=== PATIENT | female | born 1995 | race Hispanic/Latino ===

== ENCOUNTER 2018-05-01 17:49 | Observation (INO) | payer OTHER ==
[2018-05-01 17:50] VITALS: BMI 20.7
[2018-05-01] MEDS ORDERED: Lactated Ringer's 1,000 ML IV STA (18:33)
[2018-05-01 18:59] LABS: BASO # 0.1 K/uL (0.0-0.2); BASO % 0.6 % (0.0-2.0); EOS # 0.1 K/uL (0.0-0.7); EOS % 0.3 % (0.0-4.0); HEMOGLOBIN 10.5 g/dL (12.0-16.0); LYMPH # 2.3 K/uL (1.0-4.3); LYMPH % 12.9 % (20.0-40.0); MEAN CELL VOLUME 89.5 fl (81.0-99.0); MEAN CORPUSCULAR HEMOGLOBIN 30.5 pg (27.0-31.0); MEAN CORPUSCULAR HGB CONC 34.1 g/dL (33.0-37.0); MEAN PLATELET VOLUME 8.4 fl (7.2-11.7); MONO # 0.9 K/uL (0.0-0.8); MONO % 5.4 % (0.0-10.0); NEUT # 14.2 K/uL (1.8-7.0); NEUT % 80.8 % (50.0-75.0); RBC 3.43 Mil/uL (3.80-5.20); RED CELL DISTRIBUTION WIDTH 12.6 % (11.5-14.5); WHITE BLOOD COUNT 17.5 K/uL (4.8-10.8)
[2018-05-01 19:08] LABS: ALB/GLOB RATIO 1.3 (1.0-2.1); ALBUMIN 4.1 g/dL (3.5-5.0); ALT/SGPT 30 U/L (9-52); AST/SGOT 24 U/L (14-36); BLOOD UREA NITROGEN 7 mg/dl (7-17); CALCIUM 9.5 mg/dL (8.4-10.2); GFR NON-AFRICAN AMERICAN > 60
--- NOTE | 2018-05-01 19:14 | ED PDOC ---
HPI: Abdomen Time Seen by Provider: 05/01/18 18:21 Chief Complaint (Nursing): Abdominal Pain Chief Complaint (Provider): Abdominal Pain History Per: Patient History/Exam Limitations: no limitations Onset/Duration Of Symptoms: Hrs (x2 MERINGUER) Outside of [place] travel?: No Current Symptoms Are (Timing): Still Present Location Of Pain/Discomfort: RLQ, Suprapubic Quality Of Discomfort: Cramping Additional Complaint(s): 22 year old female with a history of endometriosis, seizure disorder and is 19 weeks presents to the ED with RLQ abdominal pain and pelvic pain that started x2 hours MERINGUER. Patient reports mild suprapubic cramping over the last 24 hours. Pain is radiating from RLQ to RUQ and back. She had x1 episode of vomiting and nausea. Patient denies any diarrhea, constipation, sick contacts, recent travel or recent antibiotics. She has had abdominal surgery, an appendectomy, endometriosis surgery, and ovarian cyst resection. 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 [place] Past Medical History Reviewed: Historical Data, Nursing Documentation, Vital Signs Vital Signs: Last Vital Signs Temp 98.4 F 05/01/18 18:04 Pulse 84 05/01/18 18:04 Resp 16 05/01/18 18:04 BP 114/67 05/01/18 18:04 Pulse Ox 100 05/01/18 18:04 - Medical History PMH: Anxiety, Depression, Seizures Denies: Chronic Kidney Disease Other PMH: endometriosis - Surgical History Surgical History: Appendectomy, Tonsillectomy Other surgeries: abdominal surgery, endometriosis surgery, and ovarian cyst resection - Family History Family History: States: No Known Family Hx - Social History Current smoker - smoking cessation education provided: No Ex-Smoker (has not smoked in the last 12 months): No Alcohol: None - Immunization History Hx Tetanus Toxoid Vaccination: No Hx Influenza Vaccination: No Hx Pneumococcal Vaccination: No - Home Medications Home Medications: Ambulatory Orders Medication Instructions Recorded RX: levETIRAcetam [Keppra] 750 mg PO BID #30 tab 02/28/16 oxyCODONE/Acetaminophen [Percocet 1 ea PO Q6H PRN #30 tab 08/20/16 5/325 mg Tab] Naproxen [Naprosyn] 500 mg PO BID PRN #14 tab 08/21/16 - Allergies Allergies/Adverse Reactions: Allergies Allergy/AdvReac Type Severity Reaction Status Date / Time bupropion HCl Allergy .seizure Verified 05/01/18 18:11 [From Wellbutrin] Review of Systems ROS Statement: Except As Marked, All Systems Reviewed And Found Negative Gastrointestinal: Positive for: Nausea, Vomiting, Abdominal Pain. Negative for: Diarrhea, Constipation Genitourinary Female: Positive for: Pelvic Pain Physical Exam - Reviewed Nursing Documentation Reviewed: Yes Vital Signs Reviewed: Yes - Physical Exam Appears: Positive for: In Acute Distress (mild painful) Head Exam: Positive for: ATRAUMATIC, NORMOCEPHALIC Skin: Positive for: Warm, Dry Eye Exam: Positive for: EOMI, PERRL ENT: Negative for: Pharyngeal Erythema, Tonsillar Exudate Neck: Positive for: Painless ROM, Supple Cardiovascular/Chest: Positive for: Regular Rate, Rhythm. Negative for: Murmur Respiratory: Positive for: Normal Breath Sounds. Negative for: Respiratory Distress Gastrointestinal/Abdominal: Positive for: Soft, Tenderness (RUQ tenderness to palpation ), Other (Gravid less than 20 weeks and Negative Ruth sign ). Negative for: Distended Back: Positive for: Normal Inspection. Negative for: Muscle Spasm Extremity: Positive for: Normal ROM. Negative for: Deformity Lymphatic: Negative for: Adenopathy Neurologic/Psych: Positive for: Alert. Negative for: Motor/Sensory Deficits - Laboratory Results Result Diagrams: 05/01/18 18:50 05/01/18 18:50 Lab Results: Total Bilirubin 0.2 mg/dl (0.2-1.3) 05/01/18 18:50 AST 24 U/L (14-36) 05/01/18 18:50 ALT 30 U/L (9-52) 05/01/18 18:50 Alkaline Phosphatase 48 U/L (38-126) 05/01/18 18:50 Total Protein 7.3 G/DL (6.3-8.2) 05/01/18 18:50 Albumin 4.1 g/dL (3.5-5.0) 05/01/18 18:50 Globulin 3.1 gm/dL (2.2-3.9) 05/01/18 18:50 Albumin/Globulin Ratio 1.3 (1.0-2.1) 05/01/18 18:50 - ECG O2 Sat by Pulse Oximetry: 100 (RA) Pulse Ox Interpretation: Normal Medical Decision Making Medical Decision Making: Time: 1820 Initial Impression: Abdominal pain in second trimester Differential diagnoses include but are not limited to: Adhesion pain, cystitis or UTI, and round ligament pain, ovarian cyst, demise, and endometriosis. Initial Plan: --CMP --U preg --U dip --CBC w/ differentials --Lactated ringers --Zofran 4 mg IVP --US OB Time: 2009 US OB COMMENTS: There is a single intrauterine gestation, cephalic presentation. The BPD measures 4.7 cm corresponds to a gestational age of 20 weeks 0 days. The AC measures 13.2 cm corresponds to a gestational age of 18 weeks 5 days. The HC measures 16.4 cm corresponds to a gestational age of 19 weeks 1 day. The FL measures 3.1 cm corresponds to a gestational age of 19 weeks 5 days. The composite age is 19 weeks 3 days. heart motion was observed. The heart rate is 146 beats per minute. motion is detected. The placenta is posterior fundal and free of the cervical os. No free fluid is seen. Both ovaries are not visualized. The cervical length is 4.7 cm and the cervix is closed. IMPRESSION: 1. Single, live, intrauterine gestation with a composite gestational age of 19 weeks 3 days. 2. Estimated date of delivery is 09/22/2018. History RUQ/RLQ pain. The patient is 19 weeks . Comparison None. Technique Sonographic evaluation of the right upper quadrant of the abdomen. Findings Liver Measures 17.3 cm in length. Normal echogenicity of the liver parenchyma. No mass. No intrahepatic bile duct dilatation. Gallbladder Unremarkable. No gallstones. Wall measures 0.2 cm. Common bile duct Measures 3 mm. No stones. No dilatation. Pancreas Unremarkable as visualized. No mass. No ductal dilatation. Right kidney Measures 11.7 x 3.8 x 3.9 cm in length. Normal echogenicity. No calculus, mass, or hydronephrosis. Aorta No aneurysmal dilatation. IVC Unremarkable. Other Findings Appendix is not visualized. Impression Normal study. Electronically signed on May 01, 2018 9:25:02 PM EST by: Christopher Herrera M.D., [place] Certified By ABR & [facility] Fellowship Trained MRI and CT Specialist Time: 2144 --Patient continued to have tenderness in right lower and upper quadrant. Discussed possibility of ovarian cyst or stump appendicitis, need for continued observation in hospital for undifferentiated abdominal pain and leukocytosis. Discussed with Dr. Daley, surgery corrosion control fitter, and Dr. Jolley, OB corrosion control fitter. José Miguel fernandez to be hospitalized under Dr. Ramos, medical service. DW Dr Ramos who requests blood and urine cultures and ID consult. Orders placed as per discussion. Scribe Attestation: Documented by Adri Coulter, acting as a scribe for Hina Vincent MD. Provider Scribe Attestation: All medical record entries made by the Scribe were at my direction and personally dictated by me. I have reviewed the chart and agree that the record accurately reflects my personal performance of the history, physical exam, medical decision making, and the department course for this patient. I have also personally directed, reviewed, and agree with the discharge instructions and disposition. Disposition - Clinical Impression Clinical Impression: Abdominal pain, Abdominal pain during - Disposition Disposition Time: 21:45 Condition: FAIR - Pt Status Changed To: Hospital Disposition Of: Observation - POA Present On Arrival: None
--- NOTE | 2018-05-01 23:08 | CP.PCM.CON ---
History of Present Illness - History of Present Illness History of Present Illness: General surgery consult note for Dr. Daley Consulted for: RLQ abdominal pain Patient is a 22 y/o 19wk female with PMH including endometriosis, ovarian cysts, appendicitis, and frequent UTI's with PSH of laparoscopic appe ndectomy by Dr. Boateng 08/2016 and endometrectomy, ovarian cyst excision, and fallopian tubal cannulation by Dr. Masters in 08/2017. Patient states she started having RLQ tearing abdominal pain this AM that radiates to her umbilicus. Pain is constant, worsened by movement, not alleviated by tylenol. It was associated with nausea, vomiting of stomach contents, non-bilioius, non bloody. Patient states she has had two bowel movements today of normal caliber, color, and consistency. Patient also complains of pain in the lower back that is now resolved. Patient denies fevers or chills but feels warm at time of the examination, denies any diarrhea, chest pain, SOB, dysuria, hematuria, increased urinary frequency, vaginal bleeding or discharge, or any other symptoms. Patient states she had nausea and vomiting at the beginning of that resolved, has been seeing her OBGYN, Dr. Garcia regularly, last visit one month ago. Denies any history of STD's and states her recent STD tests were negative. Denies any prior episodes of pain like this, or any sick contacts. Patient states she has f elt the fetus moving regularly today. PMH: endometriosis, ovarian cysts, appendicitis, seizures, depression, and frequent UTI's PSH: laparoscopic appendectomy, endometrectomy/ovarian cyst excision/fallopian tubal cannulation, tonsillectomy and adenoidectomy ALL: Welbutrin (seizures) Social: denies any smoking or drug history, drank socially before Family history: Father and sister had "emergent" cholecystectomies Review of Systems - Review of Systems All systems: reviewed and no additional remarkable complaints except (as per HPI) Past Patient History - Infectious Disease Hx of Infectious Diseases: None - Past Medical History & Family History Past Medical History?: Yes Pertinent Family History: father and sister cholecystectomies - Past Social History Smoking Status: Never Smoked Alcohol: None Drugs: Denies Home Situation {Lives}: With Family - CARDIAC Hx Cardiac Disorders: No - PULMONARY Hx Respiratory Disorders: No - NEUROLOGICAL Hx Seizures: Yes - HEENT Hx HEENT Problems: No - RENAL Hx Chronic Kidney Disease: No - ENDOCRINE/METABOLIC Hx Endocrine Disorders: No - HEMATOLOGICAL/ONCOLOGICAL Hx Blood Disorders: No - INTEGUMENTARY Hx Dermatological Problems: No - MUSCULOSKELETAL/RHEUMATOLOGICAL Hx Falls: Yes - GASTROINTESTINAL Hx Gastrointestinal Disorders: No - GENITOURINARY/GYNECOLOGICAL Hx Genitourinary Disorders: Yes Hx Urinary Tract Infection: Yes (multiple) Other/Comment: endometriosis s/p endometrectomy. ovarian cysts s/p ovarian cystectomy : 1 Para: 0 - PSYCHIATRIC Hx Anxiety: Yes Hx Depression: Yes - SURGICAL HISTORY Hx Appendectomy: Yes Hx Tonsillectomy: Yes Other/Comment: 08/2017: endometrectomy, ovarian cystectomy, fallopian tubal cannulation - ANESTHESIA Hx Anesthesia: Yes Hx Anesthesia Reactions: No Hx Malignant Hyperthermia: No Meds Allergies/Adverse Reactions: Allergies Allergy/AdvReac Type Severity Reaction Status Date / Time bupropion HCl Allergy .seizure Verified 05/01/18 18:11 [From Wellbutrin] Physical Exam - Constitutional Appears: Well, Non-toxic, No Acute Distress - Head Exam Head Exam: ATRAUMATIC, NORMOCEPHALIC - Eye Exam Eye Exam: Normal appearance. absent: Conjunctival injection, Scleral icterus - ENT Exam ENT Exam: Mucous Membranes Moist, Normal Oropharynx - Respiratory Exam Respiratory Exam: NORMAL BREATHING PATTERN. absent: Accessory Muscle Use, Resp iratory Distress - Cardiovascular Exam Cardiovascular Exam: RRR - GI/Abdominal Exam GI & Abdominal Exam: Soft, Tenderness (RLQ moderate tenderness to palpation). absent: Distended, Rebound, Rigid Additional comments: gravid - Rectal Exam Rectal Exam: NORMAL INSPECTION. absent: Bloody Stool, Hemorrhoids, Fecal Impaction Additional comments: normal rectal tone, no masses - Exam Exam: NORMAL INSPECTION External exam: NORMAL EXTERNAL EXAM Bimanual exam: Cervical Motion Tendernes Additional comments: no vaginal bleeding or discharge appreciated - Extremities Exam Extremities exam: Positive for: pedal pulses present. Negative for: calf tenderness, pedal edema - Back Exam Back exam: NORMAL INSPECTION. absent: CVA tenderness (L), CVA tenderness (R) - Neurological Exam Neurological exam: Alert, Oriented x3 - Psychiatric Exam Psychiatric exam: Normal Affect, Normal Mood - Skin Skin Exam: Dry, Intact, Normal Color, Warm Results - Vital Signs Recent Vital Signs: Last Vital Signs Temp 98.4 F 05/01/18 18:04 Pulse 84 05/01/18 18:04 Resp 16 05/01/18 18:04 BP 114/67 05/01/18 18:04 Pulse Ox 100 05/01/18 22:40 - Labs Result Diagrams: 05/01/18 18:50 05/01/18 18:50 Labs: Laboratory Results - last 24 hr 05/01/18 05/01/18 18:50 18:50 WBC 17.5 H RBC 3.43 L Hgb 10.5 L Hct 30.7 L MCV 89.5 MCH 30.5 MCHC 34.1 RDW 12.6 Plt Count 256 MPV 8.4 Neut % (Auto) 80.8 H Lymph % (Auto) 12.9 L [place] % (Auto) 5.4 Eos % (Auto) 0.3 Baso % (Auto) 0.6 Neut # (Auto) 14.2 H Lymph # (Auto) 2.3 [place] # (Auto) 0.9 H Eos # (Auto) 0.1 Baso # (Auto) 0.1 Sodium 137 Potassium 3.9 Chloride 105 Carbon Dioxide 23 Anion Gap 13 BUN 7 Creatinine 0.6 L Est GFR ( Amer) > 60 Est GFR (Non-Af Amer) > 60 Random Glucose 92 Calcium 9.5 Total Bilirubin 0.2 AST 24 ALT 30 Alkaline Phosphatase 48 Total Protein 7.3 Albumin 4.1 Globulin 3.1 Albumin/Globulin Ratio 1.3 Assessment & Plan - Assessment and Plan (Free Text) Assessment: 22F 19weeks with PMH of endometriosis and PSH of appendectomy, ovarian cystectomy, endometrectomy, and fallopian tubal cannulation with RLQ abdominal pain and leukocytosis Plan: Repeat CBC and bmp in the AM UA Stool occult blood IVF NPO PRN tylenol and nausea medication F/U ARTICULATION OFFICER recs Monitor vitals If patient continues to have pain and elevated WBC in the AM may consider MRI of the abdomen/pelvis Discussed with Dr. Daley, who agrees with above Mandi Nunez, PGY2
--- NOTE | 2018-05-01 23:12 | CP.PCM.HP ---
History of Present Illness - History of Present Illness History of Present Illness: 22 y/o , 19 wks with past history of appendectomy in 2016, seizure disorder, endometriosis and ovarian cyst presents to ED with RLQ abdominal pain. RLQ pain started suddenly at 3 PM today, 5/10, continuous, sharp, radiating to upper abdomen with associated nausea, 1 nonbloody vomiting, and lower back pain. Pt reports cramping sensation for last 1-2 days w/ normal appetite. Denies any sick contacts, recent travel, recent illness. Denies any fever, chills, diarrhea, constipation, vaginal bleeding, leaking of fluids, vaginal discharge. Denies any sexual activity in last few weeks. OB Hx: , 19 wks, follows up with Dr. Carolina Garcia, Last visit 04/02/18. labs WNL as per patient. No complications so far in this . PMHx: Seizure disorder(while on Wellbutrin, Currently not on any antielipeptic), Endometriosis, Ovarian cyst PSHx: Lap. Appendectomy(2016), Endometriosis and ovarian cyst removal(August 2016) Allergies: seasonal allergies Medications: PNVs F/H: DM Grandparents, Breast Ca grandmother Social Hx: Lives with spouse, denies ETOH/smoking/drugs ED Course Vitals:T 98.4, HR 84, BP 114/67, Rr 16, O2 100 RA Labs CBC WBC 17.5, HGB 10.5, Neutrophils 81%, CMP, UA unremarkable and Stool occult blood Neg Imaging: OB US WNL, FHR 146, Abd US WNL, Awaiting official report on both US Medications: LR 1L, Zofran, tylenol 975 mg Present on Admission - Present on Admission Any Indicators Present on Admission: No History of DVT/PE: No History of Uncontrolled Diabetes: No Urinary Catheter: No Decubitus Ulcer Present: No Review of Systems - Constitutional Constitutional: absent: Fatigue, Fever - Breasts Breasts: absent: Pain, Nipple Discharge - Cardiovascular Cardiovascular: absent: Chest Pain, Chest Pain at Rest, Chest Pain with Activity, Diaphoresis, Dyspnea, Edema, Leg Edema - Respiratory Respiratory: absent: Hemoptysis - Gastrointestinal Gastrointestinal: Abdominal Pain, Cramping, Nausea, Vomiting. absent: Change in Bowel Habits, Diarrhea - Genitourinary Genitourinary: absent: Change in Urinary Stream, Dysuria, Flank Pain - Reproductive: Female Reproductive:Female: absent: Genital Lesions, Vaginal Discharge - Menstruation Menstruation: absent: Abnormal Vaginal Bleeding - Musculoskeletal Musculoskeletal: Back Pain - Neurological Neurological: absent: Confusion - Psychiatric Psychiatric: absent: Anxiety, Behavioral Changes Past Patient History - Infectious Disease Hx of Infectious Diseases: None - Past Medical History & Family History Past Medical History?: Yes - Past Social History Alcohol: None - CARDIAC Hx Cardiac Disorders: No - PULMONARY Hx Respiratory Disorders: No - NEUROLOGICAL Hx Seizures: Yes - HEENT Hx HEENT Problems: No - RENAL Hx Chronic Kidney Disease: No - ENDOCRINE/METABOLIC Hx Endocrine Disorders: No - HEMATOLOGICAL/ONCOLOGICAL Hx Blood Disorders: No - INTEGUMENTARY Hx Dermatological Problems: No - MUSCULOSKELETAL/RHEUMATOLOGICAL Hx Falls: Yes - GASTROINTESTINAL Hx Gastrointestinal Disorders: No - GENITOURINARY/GYNECOLOGICAL Hx Genitourinary Disorders: Yes Hx Urinary Tract Infection: Yes (multiple) - PSYCHIATRIC Hx Anxiety: Yes Hx Depression: Yes - SURGICAL HISTORY Hx Appendectomy: Yes Hx Tonsillectomy: Yes - ANESTHESIA Hx Anesthesia: Yes Hx Anesthesia Reactions: No Hx Malignant Hyperthermia: No Meds Allergies/Adverse Reactions: Allergies Allergy/AdvReac Type Severity Reaction Status Date / Time bupropion HCl Allergy .seizure Verified 05/01/18 18:11 [From Wellbutrin] Physical Exam - Constitutional Appears: No Acute Distress - Head Exam Head Exam: ATRAUMATIC, NORMOCEPHALIC - Eye Exam Eye Exam: EOMI, Normal appearance, PERRL - ENT Exam ENT Exam: Mucous Membranes Moist - Respiratory Exam Respiratory Exam: Clear to Auscultation Bilateral, NORMAL BREATHING PATTERN. absent: Rales, Rhonchi, Wheezes, Respiratory Distress - Cardiovascular Exam Cardiovascular Exam: REGULAR RHYTHM, +S1, +S2. absent: Systolic Murmur - GI/Abdominal Exam GI & Abdominal Exam: Normal Bowel Sounds, Soft, Tenderness. absent: Distended, Hernia - Exam Bimanual exam: Cervical Motion Tendernes. absent: Adenexal Mass, Adnexal, Uterine Tenderness Additional comments: Done by Dr. Nunez, Chaperoned by nc - Extremities Exam Extremities exam: Negative for: calf tenderness, pedal edema, tenderness - Back Exam Back exam: absent: CVA tenderness (L), CVA tenderness (R) - Neurological Exam Neurological exam: Alert, Oriented x3 - Psychiatric Exam Psychiatric exam: Normal Affect, Normal Mood - Skin Skin Exam: Dry, Intact, Normal Color Results - Vital Signs Recent Vital Signs: Last Vital Signs Temp 98.4 F 05/01/18 18:04 Pulse 84 05/01/18 18:04 Resp 16 05/01/18 18:04 BP 114/67 05/01/18 18:04 Pulse Ox 100 05/01/18 23:11 - Labs Result Diagrams: 05/01/18 18:50 05/01/18 18:50 Labs: Laboratory Results - last 24 hr 05/01/18 05/01/18 05/01/18 11:00 18:50 18:50 WBC 17.5 H RBC 3.43 L Hgb 10.5 L Hct 30.7 L MCV 89.5 MCH 30.5 MCHC 34.1 RDW 12.6 Plt Count 256 MPV 8.4 Neut % (Auto) 80.8 H Lymph % (Auto) 12.9 L [place] % (Auto) 5.4 Eos % (Auto) 0.3 Baso % (Auto) 0.6 Neut # (Auto) 14.2 H Lymph # (Auto) 2.3 [place] # (Auto) 0.9 H Eos # (Auto) 0.1 Baso # (Auto) 0.1 Sodium 137 Potassium 3.9 Chloride 105 Carbon Dioxide 23 Anion Gap 13 BUN 7 Creatinine 0.6 L Est GFR ( Amer) > 60 Est GFR (Non-Af Amer) > 60 Random Glucose 92 Calcium 9.5 Total Bilirubin 0.2 AST 24 ALT 30 Alkaline Phosphatase 48 Total Protein 7.3 Albumin 4.1 Globulin 3.1 Albumin/Globulin Ratio 1.3 Stool Occult Blood Negative Assessment & Plan - Assessment and Plan (Free Text) Assessment: 22 y/o , 19 wks with past history of appendectomy in 2016, seizure disorder, endometriosis and ovarian cyst presents to ED with RLQ abdominal pain. Plan: RLQ abdominal pain - Possible ovarian cyst vs stump appendicitis - Admit to Med surg - S/P LR 1L, Zofran and Tylenol in ED - US abdomen and OB US done, Awaiting official report - Start LR at 125 ml/hr - tylenol 650 mg Q6hr for pain - Repeat CBC, CMP in AM - Monitor vitals - patient to stay NPO Leukocytosis - WBC 17.5 - Hydration - Repeat CBC in AM Case discussed with OB attending
[2018-05-01 23:20] LABS: SQUAMOUS EPITHIAL 1 /hpf (0-5); URINE BACTERIA RARE (<OCC); URINE BILIRUBIN NEGATIVE (NEGATIVE); URINE BLOOD NEGATIVE (NEGATIVE); URINE CLARITY CLEAR (Clear); URINE COLOR YELLOW (YELLOW); URINE GLUCOSE (UA) NEG (NEGATIVE); URINE LEUKOCYTE ESTERASE NEG Leu/uL (Negative); URINE PROTEIN NEGATIVE (NEGATIVE); URINE UROBILINOGEN 0.2-1.0 mg/dL (0.2-1.0)
[2018-05-02] MEDS: Lactated Ringer's 1,000 ML IV SCH ×2 (00:40→10:55)
[2018-05-02 06:52] LABS: BASO % 0.3 % (0.0-2.0); EOS # 0.1 K/uL (0.0-0.7); EOS % 0.9 % (0.0-4.0); HEMOGLOBIN 9.2 g/dL (12.0-16.0); LYMPH # 3.2 K/uL (1.0-4.3); LYMPH % 25.1 % (20.0-40.0); MEAN CELL VOLUME 89.4 fl (81.0-99.0); MEAN CORPUSCULAR HEMOGLOBIN 30.2 pg (27.0-31.0); MEAN CORPUSCULAR HGB CONC 33.8 g/dL (33.0-37.0); MEAN PLATELET VOLUME 8.7 fl (7.2-11.7); MONO # 0.9 K/uL (0.0-0.8); MONO % 7.1 % (0.0-10.0); NEUT # 8.4 K/uL (1.8-7.0); NEUT % 66.6 % (50.0-75.0); NRBC % 0.1 % (0.0-0.0); RBC 3.04 Mil/uL (3.80-5.20); WHITE BLOOD COUNT 12.7 K/uL (4.8-10.8)
[2018-05-02 07:03] LABS: ALB/GLOB RATIO 1.2 (1.0-2.1); ALBUMIN 3.3 g/dL (3.5-5.0); ALT/SGPT 26 U/L (9-52); AST/SGOT 26 U/L (14-36); BLOOD UREA NITROGEN 8 mg/dl (7-17); CALCIUM 8.9 mg/dL (8.4-10.2); GFR NON-AFRICAN AMERICAN > 60
--- NOTE | 2018-05-02 09:28 | US ---
Date of service: 05/01/2018 PROCEDURE: Obstetrical ultrasound examination HISTORY: severe lower abd pain COMPARISON: Not available TECHNIQUE: Transabdominal FINDINGS: There is a single live intrauterine gestation in cephalic presentation. The heart rate is 146 beats per minute. A normal posterior fundal placenta is identified. There is no evidence of placenta previa. The cervix is closed and measures 4.7 cm in length. A grossly normal quantity of amniotic fluid is visualized biometry demonstrates a gestational age of 19 weeks 3 days. The GAYLE by ultrasound is 09/22/2018. This corresponds to the GAYLE by LMP of 12/16/2017. anatomy was not assessed at this time. Please consider full anatomic evaluation on a nonemergent basis. The ovaries are not visualized. There are no adnexal masses seen. IMPRESSION: Single live intrauterine gestation of approximately 19 weeks 3 days. GAYLE is 09/22/2018. No previa. Cervix closed. heart rate 146. ovaries not visualized. The preliminary findings for this examination were reported by [facility] at 8:10 p.m. on 05/01/2018. There is concurrence of this report with the preliminary findings.
--- NOTE | 2018-05-02 10:08 | US ---
Date of service: 05/01/2018 HISTORY: RLQ/RUQ pain COMPARISON: None. TECHNIQUE: Sonographic evaluation of the right upper quadrant of the abdomen. FINDINGS: LIVER: Measures 17.3 cm in length. Normal echogenicity of the liver parenchyma. No mass. No intrahepatic bile duct dilatation. GALLBLADDER: Unremarkable. No gallstones. COMMON BILE DUCT: Measures 3 mm. No stones. No dilatation. PANCREAS: Unremarkable as visualized. No mass. No ductal dilatation. RIGHT KIDNEY: Measures 11.7 cm in length. Normal echogenicity. No calculus, mass, or hydronephrosis. AORTA: No aneurysmal dilatation. IVC: Unremarkable. OTHER FINDINGS: Evaluation of the right lower quadrant of the abdomen demonstrates no evidence of appendicitis. There was no tubular fluid collection identified that was noncompressible and a peristaltic. IMPRESSION: No evidence of cholelithiasis or cholecystitis. No sonographic evidence of acute appendicitis. The preliminary findings for this examination were reported by [facility] at 9:25 p.m. on 05/01/2018. There is concurrence of this report with the preliminary findings.
--- NOTE | 2018-05-02 11:55 | CP.PCM.CON ---
History of Present Illness - History of Present Illness History of Present Illness: General Surgery Agree with resident note. Additionally I would like to add that prior to the onset of her sudden RLQ pain she was doing light house work, she described the pain would radiate up to her RUQ. She never had pain like this before. She describes it being different from when she had appendicitis. She currently reports feeling hungry and the pain has slightly improved compared to yesterday. The pain is constant even at rest. She reports feeling the fetus moving. Labs and vitals noted. Afebrile. WBC trending down. Imaging reviewed. PE Gen: Pt laying in bed in NAD Skin: warm and dry Cardio: s1s2 RRR Lungs: CTA bilaterally Abd: Soft, (+) gravid, fundus below umbilicus. (+) rlq tenderness with deep palpation. (-) rebound. (-) distention. Extr: (-) calf tenderness A/P Abdominal pain with unclear etiology No general surgery intervention at this time. Diet may be advanced if okay with OB. Continue observation Serial abdominal exams Monitor vitals and labs. Past Patient History - Infectious Disease Hx of Infectious Diseases: None - Past Medical History & Family History Past Medical History?: Yes - Past Social History Smoking Status: Never Smoked Alcohol: None Drugs: Denies Home Situation {Lives}: With Family - CARDIAC Hx Cardiac Disorders: No - PULMONARY Hx Respiratory Disorders: No - NEUROLOGICAL Hx Seizures: Yes - HEENT Hx HEENT Problems: No - RENAL Hx Chronic Kidney Disease: No - ENDOCRINE/METABOLIC Hx Endocrine Disorders: No - HEMATOLOGICAL/ONCOLOGICAL Hx Blood Disorders: No - INTEGUMENTARY Hx Dermatological Problems: No - MUSCULOSKELETAL/RHEUMATOLOGICAL Hx Falls: Yes - GASTROINTESTINAL Hx Gastrointestinal Disorders: No - GENITOURINARY/GYNECOLOGICAL Hx Genitourinary Disorders: Yes Hx Urinary Tract Infection: Yes (multiple) Other/Comment: endometriosis s/p endometrectomy. ovarian cysts s/p ovarian cystectomy : 1 Para: 0 - PSYCHIATRIC Hx Anxiety: Yes Hx Depression: Yes - SURGICAL HISTORY Hx Appendectomy: Yes Hx Tonsillectomy: Yes Other/Comment: 08/2017: endometrectomy, ovarian cystectomy, fallopian tubal cannulation - ANESTHESIA Hx Anesthesia: Yes Hx Anesthesia Reactions: No Hx Malignant Hyperthermia: No Meds Allergies/Adverse Reactions: Allergies Allergy/AdvReac Type Severity Reaction Status Date / Time bupropion HCl Allergy .seizure Verified 05/01/18 18:11 [From Wellbutrin] - Medications Medications: Current Medications Acetaminophen (Tylenol 325mg Tab) 650 mg PO Q6 PRN PRN Reason: Pain, Mild (1-3) Last Admin: 05/02/18 03:26 Dose: 650 mg Lactated Ringer's (Lactated Ringer's) 1,000 mls @ 125 mls/hr IV .Q8H HILARIO Last Admin: 05/02/18 10:55 Dose: Not Given Ondansetron HCl (Zofran Inj) 4 mg IVP Q4 PRN PRN Reason: Nausea/Vomiting Results - Vital Signs Recent Vital Signs: Last Vital Signs Temp 98.2 F 05/02/18 08:03 Pulse 78 05/02/18 08:03 Resp 18 05/02/18 08:03 BP 99/54 L 05/02/18 08:03 Pulse Ox 98 05/02/18 08:03 - Labs Result Diagrams: 05/02/18 05:50 05/02/18 05:50 Labs: Laboratory Results - last 24 hr 05/01/18 05/01/18 05/01/18 11:00 18:50 18:50 WBC 17.5 H RBC 3.43 L Hgb 10.5 L Hct 30.7 L MCV 89.5 MCH 30.5 MCHC 34.1 RDW 12.6 Plt Count 256 MPV 8.4 Neut % (Auto) 80.8 H Lymph % (Auto) 12.9 L [place] % (Auto) 5.4 Eos % (Auto) 0.3 Baso % (Auto) 0.6 Neut # (Auto) 14.2 H Lymph # (Auto) 2.3 [place] # (Auto) 0.9 H Eos # (Auto) 0.1 Baso # (Auto) 0.1 Sodium 137 Potassium 3.9 Chloride 105 Carbon Dioxide 23 Anion Gap 13 BUN 7 Creatinine 0.6 L Est GFR ( Amer) > 60 Est GFR (Non-Af Amer) > 60 Random Glucose 92 Calcium 9.5 Total Bilirubin 0.2 AST 24 ALT 30 Alkaline Phosphatase 48 Total Protein 7.3 Albumin 4.1 Globulin 3.1 Albumin/Globulin Ratio 1.3 Urine Color Urine Clarity Urine pH Ur Specific [place] Urine Protein Urine Glucose (UA) Urine Ketones Urine Blood Urine Nitrate Urine Bilirubin Urine Urobilinogen Ur Leukocyte Esterase Urine RBC (Auto) Urine Microscopic WBC Ur Squamous Epith Cells Urine Bacteria Stool Occult Blood Negative 05/01/18 05/02/18 05/02/18 23:10 05:50 05:50 WBC 12.7 H RBC 3.04 L Hgb 9.2 L Hct 27.2 L MCV 89.4 MCH 30.2 MCHC 33.8 RDW 13.0 Plt Count 226 MPV 8.7 Neut % (Auto) 66.6 Lymph % (Auto) 25.1 [place] % (Auto) 7.1 Eos % (Auto) 0.9 Baso % (Auto) 0.3 Neut # (Auto) 8.4 H Lymph # (Auto) 3.2 [place] # (Auto) 0.9 H Eos # (Auto) 0.1 Baso # (Auto) 0.0 Sodium 137 Potassium 3.8 Chloride 106 Carbon Dioxide 25 Anion Gap 10 BUN 8 Creatinine 0.7 Est GFR ( Amer) > 60 Est GFR (Non-Af Amer) > 60 Random Glucose 78 Calcium 8.9 Total Bilirubin 0.4 AST 26 ALT 26 Alkaline Phosphatase 41 Total Protein 6.0 L Albumin 3.3 L Globulin 2.7 Albumin/Globulin Ratio 1.2 Urine Color Yellow Urine Clarity Clear Urine pH 6.0 Ur Specific [place] 1.014 Urine Protein Negative Urine Glucose (UA) Neg Urine Ketones Negative Urine Blood Negative Urine Nitrate Negative Urine Bilirubin Negative Urine Urobilinogen 0.2-1.0 Ur Leukocyte Esterase Neg Urine RBC (Auto) 3 Urine Microscopic WBC 1 Ur Squamous Epith Cells 1 Urine Bacteria Rare Stool Occult Blood
--- NOTE | 2018-05-02 12:29 | CP.PCM.HP ---
History of Present Illness - History of Present Illness History of Present Illness: 22 y/o F, who is 19 wks , PMHx of Endometriosis, Seizure Disorder ( Not on any antiepileptic medication), [facility] for suddenly abdominal pain that began night [employer]. Pt came c/o of increased abdominal pain RLQ, RUQ 2 hrs before arrival to hospital, described as intermittent, mild cramping, moderate intensity 5-7:10, radiated to back with no relief. Worsening symptoms: Nausea and vomiting x1 ( non blooding) in the way to the ED. Aggravated factor: . Pt denied: Fever, chills, vaginal bleeding/discharge, diarrhea, constipation, urinating symptoms, CP, palpitations, SOB, cough, sick contact, but recent travel to [facility]. Obstetric U-S showed: Single live intrauterine gestation of approximately 19 wks-3 days. Abd U-S: No evidence of cholelithiasis/cholecystitis, no acute appendicitis ( Hx of Appendectomy) Present on Admission - Present on Admission Any Indicators Present on Admission: No Review of Systems - Constitutional Constitutional: Other (Pt prenant) - EENT Eyes: Requires Corrective Lenses Ears: Other (negative) Nose/Mouth/Throat: Other (negative) - Cardiovascular Cardiovascular: Other (negative) - Respiratory Respiratory: Other (negative) - Gastrointestinal Gastrointestinal: Abdominal Pain, Nausea, Vomiting - Genitourinary Genitourinary: Other (negative) - Musculoskeletal Musculoskeletal: Other (negative) - Integumentary Integumentary: Other (negative) - Neurological Neurological: Other (negative) - Psychiatric Psychiatric: Other (negative) - Endocrine Endocrine: Other (negative) - Hematologic/Lymphatic Hematologic: Other (negative) Past Patient History - Infectious Disease Hx of Infectious Diseases: None - Past Medical History & Family History Past Medical History?: Yes Pertinent Family History: DM Grandparents. Breast Ca Grandmother. - Past Social History Smoking Status: Never Smoked Alcohol: None Drugs: Denies Home Situation {Lives}: With Family - CARDIAC Hx Cardiac Disorders: No - PULMONARY Hx Respiratory Disorders: No - NEUROLOGICAL Hx Neurological Disorder: Yes Hx Seizures: Yes - HEENT Hx HEENT Problems: No - RENAL Hx Chronic Kidney Disease: No - ENDOCRINE/METABOLIC Hx Endocrine Disorders: No - HEMATOLOGICAL/ONCOLOGICAL Hx Blood Disorders: No - INTEGUMENTARY Hx Dermatological Problems: No - MUSCULOSKELETAL/RHEUMATOLOGICAL Hx Musculoskeletal Disorders: Yes Hx Falls: Yes - GASTROINTESTINAL Hx Gastrointestinal Disorders: No - GENITOURINARY/GYNECOLOGICAL Hx Genitourinary Disorders: Yes Hx Urinary Tract Infection: Yes (multiple) Other/Comment: endometriosis s/p endometrectomy. ovarian cysts s/p ovarian cystectomy : 1 Para: 0 - PSYCHIATRIC Hx Psychophysiologic Disorder: Yes Hx Anxiety: Yes Hx Depression: Yes - SURGICAL HISTORY Hx Surgeries: Yes Hx Appendectomy: Yes Hx Tonsillectomy: Yes Other/Comment: 08/2017: endometrectomy, ovarian cystectomy, fallopian tubal cannulation - ANESTHESIA Hx Anesthesia: Yes Hx Anesthesia Reactions: No Hx Malignant Hyperthermia: No Meds Allergies/Adverse Reactions: Allergies Allergy/AdvReac Type Severity Reaction Status Date / Time bupropion HCl Allergy .seizure Verified 05/01/18 18:11 [From Wellbutrin] Physical Exam - Constitutional Appears: No Acute Distress - Head Exam Head Exam: NORMAL INSPECTION - Eye Exam Eye Exam: PERRL - ENT Exam ENT Exam: Normal Exam - Neck Exam Neck exam: Positive for: Normal Inspection - Respiratory Exam Respiratory Exam: NORMAL BREATHING PATTERN - Cardiovascular Exam Cardiovascular Exam: REGULAR RHYTHM - GI/Abdominal Exam GI & Abdominal Exam: Normal Bowel Sounds, Soft, Tenderness (mild on palpation RLQ,RUQ). absent: Distended, Guarding, Rebound - Extremities Exam Extremities exam: Positive for: normal inspection - Back Exam Back exam: NORMAL INSPECTION - Neurological Exam Neurological exam: Alert, CN II-XII Intact, Oriented x3, Reflexes Normal Additional comments: No motor/sensory deficit. - Psychiatric Exam Psychiatric exam: Normal Mood - Skin Skin Exam: Warm Results - Vital Signs Recent Vital Signs: Last Vital Signs Temp 98.2 F 05/02/18 08:03 Pulse 78 05/02/18 08:03 Resp 18 05/02/18 08:03 BP 99/54 L 05/02/18 08:03 Pulse Ox 98 05/02/18 08:03 jimmy Knapp - Labs Result Diagrams: 05/02/18 05:50 05/02/18 05:50 Labs: Laboratory Results - last 24 hr 05/01/18 05/01/18 05/01/18 11:00 18:50 18:50 WBC 17.5 H RBC 3.43 L Hgb 10.5 L Hct 30.7 L MCV 89.5 MCH 30.5 MCHC 34.1 RDW 12.6 Plt Count 256 MPV 8.4 Neut % (Auto) 80.8 H Lymph % (Auto) 12.9 L [place] % (Auto) 5.4 Eos % (Auto) 0.3 Baso % (Auto) 0.6 Neut # (Auto) 14.2 H Lymph # (Auto) 2.3 [place] # (Auto) 0.9 H Eos # (Auto) 0.1 Baso # (Auto) 0.1 Sodium 137 Potassium 3.9 Chloride 105 Carbon Dioxide 23 Anion Gap 13 BUN 7 Creatinine 0.6 L Est GFR ( Amer) > 60 Est GFR (Non-Af Amer) > 60 Random Glucose 92 Calcium 9.5 Total Bilirubin 0.2 AST 24 ALT 30 Alkaline Phosphatase 48 Total Protein 7.3 Albumin 4.1 Globulin 3.1 Albumin/Globulin Ratio 1.3 Urine Color Urine Clarity Urine pH Ur Specific [place] Urine Protein Urine Glucose (UA) Urine Ketones Urine Blood Urine Nitrate Urine Bilirubin Urine Urobilinogen Ur Leukocyte Esterase Urine RBC (Auto) Urine Microscopic WBC Ur Squamous Epith Cells Urine Bacteria Stool Occult Blood Negative 05/01/18 05/02/18 05/02/18 23:10 05:50 05:50 WBC 12.7 H RBC 3.04 L Hgb 9.2 L Hct 27.2 L MCV 89.4 MCH 30.2 MCHC 33.8 RDW 13.0 Plt Count 226 MPV 8.7 Neut % (Auto) 66.6 Lymph % (Auto) 25.1 [place] % (Auto) 7.1 Eos % (Auto) 0.9 Baso % (Auto) 0.3 Neut # (Auto) 8.4 H Lymph # (Auto) 3.2 [place] # (Auto) 0.9 H Eos # (Auto) 0.1 Baso # (Auto) 0.0 Sodium 137 Potassium 3.8 Chloride 106 Carbon Dioxide 25 Anion Gap 10 BUN 8 Creatinine 0.7 Est GFR ( Amer) > 60 Est GFR (Non-Af Amer) > 60 Random Glucose 78 Calcium 8.9 Total Bilirubin 0.4 AST 26 ALT 26 Alkaline Phosphatase 41 Total Protein 6.0 L Albumin 3.3 L Globulin 2.7 Albumin/Globulin Ratio 1.2 Urine Color Yellow Urine Clarity Clear Urine pH 6.0 Ur Specific [place] 1.014 Urine Protein Negative Urine Glucose (UA) Neg Urine Ketones Negative Urine Blood Negative Urine Nitrate Negative Urine Bilirubin Negative Urine Urobilinogen 0.2-1.0 Ur Leukocyte Esterase Neg Urine RBC (Auto) 3 Urine Microscopic WBC 1 Ur Squamous Epith Cells 1 Urine Bacteria Rare Stool Occult Blood reviewed J.P. - Imaging and Cardiology US - abdomen Status: Report reviewed by me (J.P.) obstretic U-S Status: Report reviewed by me Assessment & Plan (1) Abdominal pain Status: Acute Priority: High (2) Abdominal pain during Status: Acute Priority: High - Assessment and Plan (Free Text) Plan: Leukocytosis improved, abdominal pain improved, Surgical team no need for surgical intervention, cleared by ID, Pt improved and stable to be discharged, call [employer] and PMD for f/u in this week - Date & Time Date: 05/02/18 Time: 11:00
--- NOTE | 2018-05-02 12:35 | CP.PCM.CON ---
<Lor Byers - Last Filed: 05/02/18 12:33> History of Present Illness - History of Present Illness History of Present Illness: Patient reports feeling slightly better today. Appetite has returned. No new nausea/vomiting/uterine cramping or vaginal bleeding. Review of Systems - Gastrointestinal Gastrointestinal: Abdominal Pain. absent: Cramping, Diarrhea, Nausea, Vomiting - Genitourinary Genitourinary: absent: Flank Pain, Hematuria, Urinary Incontinence, Urinary Frequency, Urinary Urgency Past Patient History - Infectious Disease Hx of Infectious Diseases: None - Past Medical History & Family History Past Medical History?: Yes - Past Social History Smoking Status: Never Smoked Alcohol: None Drugs: Denies Home Situation {Lives}: With Family - CARDIAC Hx Cardiac Disorders: No - PULMONARY Hx Respiratory Disorders: No - NEUROLOGICAL Hx Seizures: Yes - HEENT Hx HEENT Problems: No - RENAL Hx Chronic Kidney Disease: No - ENDOCRINE/METABOLIC Hx Endocrine Disorders: No - HEMATOLOGICAL/ONCOLOGICAL Hx Blood Disorders: No - INTEGUMENTARY Hx Dermatological Problems: No - MUSCULOSKELETAL/RHEUMATOLOGICAL Hx Falls: Yes - GASTROINTESTINAL Hx Gastrointestinal Disorders: No - GENITOURINARY/GYNECOLOGICAL Hx Genitourinary Disorders: Yes Hx Urinary Tract Infection: Yes (multiple) Other/Comment: endometriosis s/p endometrectomy. ovarian cysts s/p ovarian cystectomy : 1 Para: 0 - PSYCHIATRIC Hx Anxiety: Yes Hx Depression: Yes - SURGICAL HISTORY Hx Appendectomy: Yes Hx Tonsillectomy: Yes Other/Comment: 08/2017: endometrectomy, ovarian cystectomy, fallopian tubal cannulation - ANESTHESIA Hx Anesthesia: Yes Hx Anesthesia Reactions: No Hx Malignant Hyperthermia: No Meds Allergies/Adverse Reactions: Allergies Allergy/AdvReac Type Severity Reaction Status Date / Time bupropion HCl Allergy .seizure Verified 05/01/18 18:11 [From Wellbutrin] - Medications Medications: Current Medications Acetaminophen (Tylenol 325mg Tab) 650 mg PO Q6 PRN PRN Reason: Pain, Mild (1-3) Last Admin: 05/02/18 03:26 Dose: 650 mg Lactated Ringer's (Lactated Ringer's) 1,000 mls @ 125 mls/hr IV .Q8H HILARIO Last Admin: 05/02/18 10:55 Dose: Not Given Ondansetron HCl (Zofran Inj) 4 mg IVP Q4 PRN PRN Reason: Nausea/Vomiting Physical Exam - Constitutional Appears: No Acute Distress - Eye Exam Eye Exam: EOMI, Normal appearance - Respiratory Exam Respiratory Exam: NORMAL BREATHING PATTERN. absent: Accessory Muscle Use - GI/Abdominal Exam GI & Abdominal Exam: Soft. absent: Distended, Guarding, Mass, Rebound, Rigid Additional comments: Gravid uterus palpable just below the umbilicus Results - Vital Signs Recent Vital Signs: Last Vital Signs Temp 98.2 F 05/02/18 08:03 Pulse 78 05/02/18 08:03 Resp 18 05/02/18 08:03 BP 99/54 L 05/02/18 08:03 Pulse Ox 98 05/02/18 08:03 - Labs Result Diagrams: 05/02/18 05:50 05/02/18 05:50 Labs: Laboratory Results - last 24 hr 05/01/18 05/01/18 05/01/18 11:00 18:50 18:50 WBC 17.5 H RBC 3.43 L Hgb 10.5 L Hct 30.7 L MCV 89.5 MCH 30.5 MCHC 34.1 RDW 12.6 Plt Count 256 MPV 8.4 Neut % (Auto) 80.8 H Lymph % (Auto) 12.9 L [place] % (Auto) 5.4 Eos % (Auto) 0.3 Baso % (Auto) 0.6 Neut # (Auto) 14.2 H Lymph # (Auto) 2.3 [place] # (Auto) 0.9 H Eos # (Auto) 0.1 Baso # (Auto) 0.1 Sodium 137 Potassium 3.9 Chloride 105 Carbon Dioxide 23 Anion Gap 13 BUN 7 Creatinine 0.6 L Est GFR ( Amer) > 60 Est GFR (Non-Af Amer) > 60 Random Glucose 92 Calcium 9.5 Total Bilirubin 0.2 AST 24 ALT 30 Alkaline Phosphatase 48 Total Protein 7.3 Albumin 4.1 Globulin 3.1 Albumin/Globulin Ratio 1.3 Urine Color Urine Clarity Urine pH Ur Specific [place] Urine Protein Urine Glucose (UA) Urine Ketones Urine Blood Urine Nitrate Urine Bilirubin Urine Urobilinogen Ur Leukocyte Esterase Urine RBC (Auto) Urine Microscopic WBC Ur Squamous Epith Cells Urine Bacteria Stool Occult Blood Negative 05/01/18 05/02/18 05/02/18 23:10 05:50 05:50 WBC 12.7 H RBC 3.04 L Hgb 9.2 L Hct 27.2 L MCV 89.4 MCH 30.2 MCHC 33.8 RDW 13.0 Plt Count 226 MPV 8.7 Neut % (Auto) 66.6 Lymph % (Auto) 25.1 [place] % (Auto) 7.1 Eos % (Auto) 0.9 Baso % (Auto) 0.3 Neut # (Auto) 8.4 H Lymph # (Auto) 3.2 [place] # (Auto) 0.9 H Eos # (Auto) 0.1 Baso # (Auto) 0.0 Sodium 137 Potassium 3.8 Chloride 106 Carbon Dioxide 25 Anion Gap 10 BUN 8 Creatinine 0.7 Est GFR ( Amer) > 60 Est GFR (Non-Af Amer) > 60 Random Glucose 78 Calcium 8.9 Total Bilirubin 0.4 AST 26 ALT 26 Alkaline Phosphatase 41 Total Protein 6.0 L Albumin 3.3 L Globulin 2.7 Albumin/Globulin Ratio 1.2 Urine Color Yellow Urine Clarity Clear Urine pH 6.0 Ur Specific [place] 1.014 Urine Protein Negative Urine Glucose (UA) Neg Urine Ketones Negative Urine Blood Negative Urine Nitrate Negative Urine Bilirubin Negative Urine Urobilinogen 0.2-1.0 Ur Leukocyte Esterase Neg Urine RBC (Auto) 3 Urine Microscopic WBC 1 Ur Squamous Epith Cells 1 Urine Bacteria Rare Stool Occult Blood Assessment & Plan (1) Abdominal pain during Status: Acute - Assessment and Plan (Free Text) Assessment: 22 year old F at approximately 19 weeks gestation admitted for RLQ pain. OBGYN was consulted to assess for related cause vs ovarian cyst. Obstetrical US identified a viable 19.3 weeks fetus. Ovaries were not visualized, which likely excludes the presence of a significant ovarian cyst/mass. No adnexal masses identified. Her WBC has decreased overnight and was likely reactive, low suspicion for an intraabdominal infection at this time. Given her 2 previous abdominal surgeries she may have adhesions which are causing pain due to the expansion of her gravid uterus. This may also be related to normal round l igament pain during . 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 Plan: 1. Advance diet as tolerated 2. Patient is appropriate for discharge at this time from an OBGYN standpoint as long as she tolerates a regular diet 3. Patient has routine OB appt on Saturday with Dr. Garcia <Willard Edmondson Filed: 05/03/18 20:48> Results - Vital Signs Recent Vital Signs: Last Vital Signs Temp 98 F 05/02/18 15:53 Pulse 79 05/02/18 15:53 Resp 20 05/02/18 15:53 BP 97/55 L 05/02/18 15:53 Pulse Ox 99 05/02/18 15:53 - Labs Result Diagrams: 05/02/18 05:50 05/02/18 05:50 Labs: Laboratory Results - last 24 hr 05/02/18 14:56 Procalcitonin < 0.05 L Addendum Addendum: Attending Note: I discuss this patient with the OB fellow, Sallie Byers, who saw and evaluated the patient and I agreed with her assessment. 05/03/18 20:46
--- NOTE | 2018-05-02 13:38 | CP.PCM.CON ---
History of Present Illness - History of Present Illness History of Present Illness: 22 y/o female who is 19 wks presented to ED with RLQ abdominal pain which started suddenly yesterday with associated nausea, 1 nonbloody vomiting, and lower back pain. Denies any sick contacts, recent travel, recent illness. Denies any fever, chills, diarrhea, constipation, vaginal bleeding, leaking of fluids, vaginal discharge. Denies any sexual activity in last few weeks. ID consulted for abdominal pain and leukocytosis Patient has no fever and pain is less today IN addition her WBC has nearly normalized while not on any antibiotics PMHx: Seizure disorder(while on Wellbutrin, Currently not on any antielipeptic), Endometriosis, Ovarian cyst PSHx: Lap. Appendectomy(2015), Endometriosis and ovarian cyst removal(August 2016) Allergies: seasonal allergies Medications: PNVs F/H: DM Grandparents, Breast Ca grandmother Social Hx: Lives with spouse, denies ETOH/smoking/drugs Review of Systems - Constitutional Constitutional: As Per HPI - EENT Eyes: absent: As Per HPI, Blind Spots, Blurred Vision, Change in Vision, Decreased Night Vision, Diplopia, Discharge, Dry Eye, Exophthalmos, Floaters, Irritation, Itchy Eyes, Loss of Peripheral Vision, Pain, Photophobia, Requires Corrective Lenses, Sees Flashes, Spots in Vision, Tunnel Vision, Other Visual Disturbances, Loss of Vision, Other Ears: absent: As Per HPI, Decreased Hearing, Ear Discharge, Ear Pain, Tinnitus, Abnormal Hearing, Disequilibrium, Dizziness, Other Nose/Mouth/Throat: absent: As Per HPI, Epistaxis, Nasal Congestion, Nasal Discharge, Nasal Obstruction, Nasal Trauma, Nose Pain, Post Nasal Drip, Sinus Pain, Sinus Pressure, Bleeding Gums, Change in Voice, Dental Pain, Dry Mouth, Dysphagia, Halitosis, Hoarsness, Lip Swelling, Mouth Lesions, Mouth Pain, Odynophagia, Sore Throat, Throat Swelling, Tongue Swelling, Facial Pain, Neck Pain, Neck Mass, Other - Breasts Breasts: absent: As Per HPI, Change in Shape, Mass, Pain, Nipple Discharge, Nipp le Inversion, Skin Changes, Swelling, Other - Cardiovascular Cardiovascular: absent: As Per HPI, Acrocyanosis, Chest Pain, Chest Pain at Rest, Chest Pain with Activity, Claudication, Diaphoresis, Dyspnea, Dyspnea on Exertion, Edema, Irregular Heart Rhythm, Pain Radiating to Arm/Neck/Jaw, Leg Edema, Leg Ulcers, Lightheadedness, Orthopnea, Palpitations, Paroxysmal Nocturnal Dyspnea, Pedal Edema, Radiating Pain, Rapid Heart Rate, Slow Heart Rate, Syncope, Other - Respiratory Respiratory: absent: As Per HPI, Cough, Dyspnea, Hemoptysis, Dyspnea on Exertion, Wheezing, Snoring, Stridor, Pain on Inspiration, Chest Congestion, Excessive Mucous Production, Change in Mucous Color, Pain with Coughing, Other - Gastrointestinal Gastrointestinal: As Per HPI - Genitourinary Genitourinary: As Per HPI - Reproductive: Female Reproductive:Female: As Per HPI - Menstruation Menstruation: As Per HPI - Musculoskeletal Musculoskeletal: absent: As Per HPI, Abnormal Gait, Arthralgias, Atrophy, Back Pain, Deformity, Joint Swelling, Limited Range of Motion, Loss of Height, Muscle Cramps, Muscle Weakness, Myalgias, Neck Pain, Numbness, Radiating Pain into Limb, Stiffness, Tingling, Other - Integumentary Integumentary: absent: As Per HPI, Acne, Alopecia, Bleeding Lesions, Change in Hair, Change in Nails, Change in Pigmentation, Changing Lesions, Dry Skin, Erythema, Furuncle, Hirsutism, Lesions, New Lesions, Non-Healing Lesions, Photosensitivity, Pruritus, Rash, Skin Pain, Skin Ulcer, Sores, Striae, Swelling, Unusual Bruising, Wounds, Jaundice, Other - Neurological Neurological: absent: As Per HPI, Abnormal Gait, Abnormal Hearing, Abnormal Movements, Abnormal Speech, Behavioral Changes, Burning Sensations, Confusion, Convulsions, Disequilibrium, Dizziness, Numbness, Focal Weakness, Frequent Falls, Headaches, Lack of Coordination, Loss of Vision, Memory Loss, Paresthesias, Radicular Pain, Restless Legs, Sensory Deficit, Syncope, Tingling, Tremor, Vertigo, Weakness, Other Visual Disturbances, Other - Psychiatric Psychiatric: absent: As Per HPI, Abnormal Sleep Pattern, Anhedonia, Anxiety, Auditory Hallucinations, Behavioral Changes, Change in Appetite, Change in Libido, Confusion, Depression, Difficulty Concentrating, Hallucinations, Homicidal Ideation, Hopelessness, Irritability, Memory Loss, Mood Swings, Panic Attacks, Paranoia, Suicidal Ideation, Visual Hallucinations, Tactile Hallucinations, Other - Endocrine Endocrine: absent: As Per HPI, Change in Body Appearance, Change in Libido, Cold Intolorance, Deepening of Voice, Excessive Sweating, Fatigue, Flushing, Heat Intolorance, Increase in Ring/Shoe/Hat Size, Palpitations, Polydipsia, Polyphagia, Polyuria, Other - Hematologic/Lymphatic Hematologic: absent: As Per HPI, Easy Bleeding, Easy Bruising, Lymphadenopathy, Other Past Patient History - Infectious Disease Hx of Infectious Diseases: None - Past Medical History & Family History Past Medical History?: Yes - Past Social History Smoking Status: Never Smoked Alcohol: None Drugs: Denies Home Situation {Lives}: With Family - CARDIAC Hx Cardiac Disorders: No - PULMONARY Hx Respiratory Disorders: No - NEUROLOGICAL Hx Seizures: Yes - HEENT Hx HEENT Problems: No - RENAL Hx Chronic Kidney Disease: No - ENDOCRINE/METABOLIC Hx Endocrine Disorders: No - HEMATOLOGICAL/ONCOLOGICAL Hx Blood Disorders: No - INTEGUMENTARY Hx Dermatological Problems: No - MUSCULOSKELETAL/RHEUMATOLOGICAL Hx Falls: Yes - GASTROINTESTINAL Hx Gastrointestinal Disorders: No - GENITOURINARY/GYNECOLOGICAL Hx Genitourinary Disorders: Yes Hx Urinary Tract Infection: Yes (multiple) Other/Comment: endometriosis s/p endometrectomy. ovarian cysts s/p ovarian cystectomy : 1 Para: 0 - PSYCHIATRIC Hx Anxiety: Yes Hx Depression: Yes - SURGICAL HISTORY Hx Appendectomy: Yes Hx Tonsillectomy: Yes Other/Comment: 08/2017: endometrectomy, ovarian cystectomy, fallopian tubal cannulation - ANESTHESIA Hx Anesthesia: Yes Hx Anesthesia Reactions: No Hx Malignant Hyperthermia: No Meds Allergies/Adverse Reactions: Allergies Allergy/AdvReac Type Severity Reaction Status Date / Time bupropion HCl Allergy .seizure Verified 05/01/18 18:11 [From Wellbutrin] - Medications Medications: Current Medications Acetaminophen (Tylenol 325mg Tab) 650 mg PO Q6 PRN PRN Reason: Pain, Mild (1-3) Last Admin: 05/02/18 03:26 Dose: 650 mg Lactated Ringer's (Lactated Ringer's) 1,000 mls @ 125 mls/hr IV .Q8H HILARIO Last Admin: 05/02/18 10:55 Dose: Not Given Ondansetron HCl (Zofran Inj) 4 mg IVP Q4 PRN PRN Reason: Nausea/Vomiting Physical Exam - Constitutional Appears: Non-toxic, No Acute Distress - Head Exam Head Exam: ATRAUMATIC, NORMAL INSPECTION, NORMOCEPHALIC - Eye Exam Eye Exam: PERRL. absent: Scleral icterus - ENT Exam ENT Exam: Mucous Membranes Dry, Normal External Ear Exam, Normal Oropharynx - Neck Exam Neck exam: Negative for: Lymphadenopathy - Respiratory Exam Respiratory Exam: Decreased Breath Sounds, Clear to Auscultation Bilateral - Cardiovascular Exam Cardiovascular Exam: REGULAR RHYTHM, +S1, +S2 - GI/Abdominal Exam GI & Abdominal Exam: Diminished Bowel Sounds, Soft, Tenderness. absent: Guarding, Organomegaly, Pulsatile Mass, Rebound, Rigid Additional comments: no rebound or guarding - Rectal Exam Rectal Exam: Deferred - Exam Exam: NORMAL INSPECTION - Extremities Exam Extremities exam: Positive for: pedal pulses present. Negative for: calf tenderness, pedal edema, tenderness - Back Exam Back exam: absent: CVA tenderness (L), CVA tenderness (R), paraspinal tenderness - Neurological Exam Neurological exam: Alert, CN II-XII Intact, Oriented x3, Reflexes Normal - Psychiatric Exam Psychiatric exam: Normal Mood - Skin Skin Exam: Dry Results - Vital Signs Recent Vital Signs: Last Vital Signs Temp 98.2 F 05/02/18 08:03 Pulse 78 05/02/18 08:03 Resp 18 05/02/18 08:03 BP 99/54 L 05/02/18 08:03 Pulse Ox 98 05/02/18 08:03 - Labs Result Diagrams: 05/02/18 05:50 05/02/18 05:50 Labs: Laboratory Results - last 24 hr 05/01/18 05/01/18 05/01/18 11:00 18:50 18:50 WBC 17.5 H RBC 3.43 L Hgb 10.5 L Hct 30.7 L MCV 89.5 MCH 30.5 MCHC 34.1 RDW 12.6 Plt Count 256 MPV 8.4 Neut % (Auto) 80.8 H Lymph % (Auto) 12.9 L [place] % (Auto) 5.4 Eos % (Auto) 0.3 Baso % (Auto) 0.6 Neut # (Auto) 14.2 H Lymph # (Auto) 2.3 [place] # (Auto) 0.9 H Eos # (Auto) 0.1 Baso # (Auto) 0.1 Sodium 137 Potassium 3.9 Chloride 105 Carbon Dioxide 23 Anion Gap 13 BUN 7 Creatinine 0.6 L Est GFR ( Amer) > 60 Est GFR (Non-Af Amer) > 60 Random Glucose 92 Calcium 9.5 Total Bilirubin 0.2 AST 24 ALT 30 Alkaline Phosphatase 48 Total Protein 7.3 Albumin 4.1 Globulin 3.1 Albumin/Globulin Ratio 1.3 Urine Color Urine Clarity Urine pH Ur Specific [place] Urine Protein Urine Glucose (UA) Urine Ketones Urine Blood Urine Nitrate Urine Bilirubin Urine Urobilinogen Ur Leukocyte Esterase Urine RBC (Auto) Urine Microscopic WBC Ur Squamous Epith Cells Urine Bacteria Stool Occult Blood Negative 05/01/18 05/02/18 05/02/18 23:10 05:50 05:50 WBC 12.7 H RBC 3.04 L Hgb 9.2 L Hct 27.2 L MCV 89.4 MCH 30.2 MCHC 33.8 RDW 13.0 Plt Count 226 MPV 8.7 Neut % (Auto) 66.6 Lymph % (Auto) 25.1 [place] % (Auto) 7.1 Eos % (Auto) 0.9 Baso % (Auto) 0.3 Neut # (Auto) 8.4 H Lymph # (Auto) 3.2 [place] # (Auto) 0.9 H Eos # (Auto) 0.1 Baso # (Auto) 0.0 Sodium 137 Potassium 3.8 Chloride 106 Carbon Dioxide 25 Anion Gap 10 BUN 8 Creatinine 0.7 Est GFR ( Amer) > 60 Est GFR (Non-Af Amer) > 60 Random Glucose 78 Calcium 8.9 Total Bilirubin 0.4 AST 26 ALT 26 Alkaline Phosphatase 41 Total Protein 6.0 L Albumin 3.3 L Globulin 2.7 Albumin/Globulin Ratio 1.2 Urine Color Yellow Urine Clarity Clear Urine pH 6.0 Ur Specific [place] 1.014 Urine Protein Negative Urine Glucose (UA) Neg Urine Ketones Negative Urine Blood Negative Urine Nitrate Negative Urine Bilirubin Negative Urine Urobilinogen 0.2-1.0 Ur Leukocyte Esterase Neg Urine RBC (Auto) 3 Urine Microscopic WBC 1 Ur Squamous Epith Cells 1 Urine Bacteria Rare Stool Occult Blood Assessment & Plan (1) Abdominal pain Status: Acute (2) Abdominal pain during Status: Acute - Assessment and Plan (Free Text) Assessment: 22 y/o female who is 19 wks presented to ED with RLQ abdominal pain which started suddenly yesterday with associated nausea, 1 nonbloody vomiting, and lower back pain. Plan: ID consulted for abdominal pain and leukocytosis Patient has no fever and pain is less today In addition her WBC has nearly normalized while not on any antibiotics WBC elevation is nonspecific and her pain has nearly resolved No evidence of or LOG HAULER infection May be due to stress with demargination No evidence of intraabdominal/ pelvic infection at this time If pain recurs would order imaging - MRI and start empiric IV antibiotics For now OK to observe off antibiotics
[2018-05-02 15:53] VITALS: BP 97/55; PULSE 79; RESP 20; TEMP 98; O2SAT 99
--- NOTE | 2018-05-02 23:42 | CP.PCM.DIS ---
Provider - Provider Date of Admission: 05/01/18 22:04 Attending physician: Nj Ramos MD Consults: 05/01/18 22:16 General Surgery Consult Stat Comment: Consulting Provider: Chinmay Daley Consulting Physician: Chinmay Daley Reason for Consult: undifferentiated abdominal pain and leukocytosis FIRER LOW PRESSURE Consult Stat Comment: Consulting Provider: Crow Franco Consulting Physician: Crow Franco Reason for Consult: undifferentiated abdominal pain 19 wks 05/01/18 23:04 Infectious Disease Consult Stat Comment: Consulting Provider: Mark Gabriel Consulting Physician: Mark Gabriel Reason for Consult: leukocytosis and abdominal pain Diagnosis - Discharge Diagnosis (1) Abdominal pain Status: Acute Priority: High (2) Abdominal pain during Status: Acute Priority: High Hospital Course - Lab Results Lab Results: Most Recent Lab Values WBC 12.7 K/uL (4.8-10.8) H 05/02/18 05:50 RBC 3.04 Mil/uL (3.80-5.20) L 05/02/18 05:50 Hgb 9.2 g/dL (12.0-16.0) L 05/02/18 05:50 Hct 27.2 % (34.0-47.0) L 05/02/18 05:50 MCV 89.4 fl (81.0-99.0) 05/02/18 05:50 MCH 30.2 pg (27.0-31.0) 05/02/18 05:50 MCHC 33.8 g/dL (33.0-37.0) 05/02/18 05:50 RDW 13.0 % (11.5-14.5) 05/02/18 05:50 Plt Count 226 K/uL (130-400) 05/02/18 05:50 MPV 8.7 fl (7.2-11.7) 05/02/18 05:50 Neut % (Auto) 66.6 % (50.0-75.0) 05/02/18 05:50 Lymph % (Auto) 25.1 % (20.0-40.0) 05/02/18 05:50 [place] % (Auto) 7.1 % (0.0-10.0) 05/02/18 05:50 Eos % (Auto) 0.9 % (0.0-4.0) 05/02/18 05:50 Baso % (Auto) 0.3 % (0.0-2.0) 05/02/18 05:50 Neut # (Auto) 8.4 K/uL (1.8-7.0) H 05/02/18 05:50 Lymph # (Auto) 3.2 K/uL (1.0-4.3) 05/02/18 05:50 [place] # (Auto) 0.9 K/uL (0.0-0.8) H 05/02/18 05:50 Eos # (Auto) 0.1 K/uL (0.0-0.7) 05/02/18 05:50 Baso # (Auto) 0.0 K/uL (0.0-0.2) 05/02/18 05:50 Sodium 137 mmol/l (132-148) 05/02/18 05:50 Potassium 3.8 MMOL/L (3.6-5.0) 05/02/18 05:50 Chloride 106 mmol/L (98-107) 05/02/18 05:50 Carbon Dioxide 25 mmol/L (22-30) 05/02/18 05:50 Anion Gap 10 (10-20) 05/02/18 05:50 BUN 8 mg/dl (7-17) 05/02/18 05:50 Creatinine 0.7 mg/dl (0.7-1.2) 05/02/18 05:50 Est GFR ( Amer) > 60 05/02/18 05:50 Est GFR (Non-Af Amer) > 60 05/02/18 05:50 Random Glucose 78 mg/dL (65-105) 05/02/18 05:50 Calcium 8.9 mg/dL (8.4-10.2) 05/02/18 05:50 Total Bilirubin 0.4 mg/dl (0.2-1.3) 05/02/18 05:50 AST 26 U/L (14-36) 05/02/18 05:50 ALT 26 U/L (9-52) 05/02/18 05:50 Alkaline Phosphatase 41 U/L (38-126) 05/02/18 05:50 Total Protein 6.0 G/DL (6.3-8.2) L 05/02/18 05:50 Albumin 3.3 g/dL (3.5-5.0) L 05/02/18 05:50 Globulin 2.7 gm/dL (2.2-3.9) 05/02/18 05:50 Albumin/Globulin Ratio 1.2 (1.0-2.1) 05/02/18 05:50 Procalcitonin < 0.05 NG/ML (0.19-0.49) L 05/02/18 14:56 Urine Color Yellow (YELLOW) 05/01/18 23:10 Urine Clarity Clear (Clear) 05/01/18 23:10 Urine pH 6.0 (5.0-8.0) 05/01/18 23:10 Ur Specific [place] 1.014 (1.003-1.030) 05/01/18 23:10 Urine Protein Negative mg/dL (NEGATIVE) 05/01/18 23:10 Urine Glucose (UA) Neg mg/dL (NEGATIVE) 05/01/18 23:10 Urine Ketones Negative mg/dL (NEGATIVE) 05/01/18 23:10 Urine Blood Negative (NEGATIVE) 05/01/18 23:10 Urine Nitrate Negative (NEGATIVE) 05/01/18 23:10 Urine Bilirubin Negative (NEGATIVE) 05/01/18 23:10 Urine Urobilinogen 0.2-1.0 mg/dL (0.2-1.0) 05/01/18 23:10 Ur Leukocyte Esterase Neg Mia/uL (Negative) 05/01/18 23:10 Urine RBC (Auto) 3 /hpf (0-3) 05/01/18 23:10 Urine Microscopic WBC 1 /hpf (0-5) 05/01/18 23:10 Ur Squamous Epith Cells 1 /hpf (0-5) 05/01/18 23:10 Urine Bacteria Rare (<OCC) 05/01/18 23:10 Stool Occult Blood Negative (NEGATIVE) 05/01/18 11:00 Influenza Typ A,B (EIA) Negative for flu a/b (NEGATIVE) 05/02/18 15:04 Discharge Exam - Head Exam Head Exam: NORMAL INSPECTION Discharge Plan - Follow Up Plan Condition: FAIR Disposition: HOME/ ROUTINE Instructions: Acute Abdomen (Belly Pain), Adult (DC), - The Second Month, - The Third Month Additional Instructions: follow up with primary MD, FIRER LOW PRESSURE 1 week Referrals: Chinmay Daley MD [Staff Provider] - Crow Franco MD [Staff Provider] - Mark Gabriel MD [Staff Provider] -
== END 2018-05-02 16:25 | disposition home or self-care (01) ==
LOC: H.ER 17:49 → H.ERHOLD 22:04 → H.MEDSURG1 05-02 00:02
PROVIDERS: ADMIT Internal Medicine Pulmonary Disease; ATTEND Internal Medicine Pulmonary Disease
DX: R10.31 Right lower quadrant pain (principal); Z33.1 Pregnant state, incidental
CPT/HCPCS: 36415; 76705; 76815; 80053; 81003; 81025; 84145; 85025; 87040; 87086; 87804; 96374; 99284; G0328; G0378; J2405; J7120